=== PATIENT | male | born 1955 | race Caucasian/White ===

== ENCOUNTER 2017-10-28 19:36 | Observation (INO) | payer BC ==
[~2017-10-28] VITALS: Ht 180.3 cm; Wt 112.8 kg
[~2017-10-28 19:36] MED LIST: DOXYCYCLINE 10100 MG PO; NO HOME MEDICATIONS; PHENERGAN 25 TA25 MG PO; PHENERGAN25 MG RC
[2017-10-28 20:07] LABS: BASO # 0.1 (0.0-0.2); BASO % 1.2 % (0.0-2.0); EOS # 0.7 (0.0-0.7); EOS % 9.1 % (0-4.0); GRAN # 4.4 (1.4-6.5); GRAN % 59.7 % (42.2-75.2); HEMATOCRIT 40.9 % (42.0-52.0); HEMOGLOBIN 14.1 g/dl (13.5-18.0); LYMPH # 1.6 (1.2-3.4); LYMPH % 22.3 % (20.0-51.0); MEAN CELL VOLUME 87 fl (80.0-100.0); MEAN CORPUSCULAR HEMOGLOBIN 30 pg (27.0-31.0); MEAN CORPUSCULAR HGB CONC 35 g/dl (33.0-37.0); MEAN PLATELET VOLUME 9.2 fl (7.4-10.4); MONO # 0.5 (0.1-0.6); MONO % 7.4 % (1.7-9.3); PLATELET COUNT 244 K/mm3 (130-400); RED BLOOD COUNT 4.71 M/mm3 (4.20-5.60); REDCELL DISTRIBUTION WIDTH-CV 12.7 % (11.5-14.5)
[2017-10-28 20:12] LABS: PARTIAL THROMBOPLASTIN TIME 33.9 SECONDS (26.0-37.0)
[2017-10-28 20:14] LABS: ALANINE AMINOTRANSFERASE 54 U/L (21-72); ALKALINE PHOSPHATASE 96 U/L (50-136); ANION GAP 8 mmol/L (7-16); AST,SGOT 30 U/L (15-37); BILIRUBIN,TOTAL 0.4 mg/dL (0.0-1.0); BLOOD UREA NITROGEN 13 mg/dL (9-20); CALCIUM 9.4 mg/dL (8.4-10.2); CARBON DIOXIDE 30 mmol/L (22-30); CHLORIDE 102 mmol/L (98-107); CREATININE, serum 0.88 mg/dL (0.66-1.25); GLUCOSE 147 mg/dL (74-106); POTASSIUM 3.9 mmol/L (3.4-5.0); SODIUM 140 mmol/L (137-145)
[2017-10-28] MEDS ORDERED: MUCINEX1200 MG PO (20:21)
[2017-10-28] MEDS ORDERED: PRIMATENE 12.51 TAB (20:21)
[2017-10-28] MEDS ORDERED: ZOCOR 40MG40 MG PO (20:22)
[2017-10-28] MEDS ORDERED: ASPIRIN 81M81 MG/TA2 PO (20:22)
[2017-10-28] MEDS ORDERED: BYSTOLIC5 MG PO (20:22)
[2017-10-28] MEDS ORDERED: PROBIOTIC ACID1 EAC3 PO (20:23)
[2017-10-28] MEDS ORDERED: MASON NATURAL1200 MG PO (20:24)
[2017-10-28] MEDS ORDERED: PHARMASSURE GA500 MG PO (20:24)
[2017-10-28 20:28] LABS: TROPONIN-I < 0.012 ng/mL (0.000-0.034)
[2017-10-28 22:48] VITALS: BP 152/87; PULSE 66; TEMP 98.4
[2017-10-28 22:49] VITALS: BP 152/87; PULSE 67; TEMP 98.4
[2017-10-29] VITALS (8 sets, daily range): BP systolic 108–144; BP diastolic 56–86; PULSE 67–101; TEMP 97.8–98.2
[2017-10-29 06:49] LABS: CHOLESTEROL 152 mg/dL (120-200); CHOLESTEROL RISK RATIO 3.7; HDL CHOLESTEROL 41 mg/dL; LDL CHOLESTEROL 84 mg/dL; TRIGLYCERIDE 137 mg/dL
[2017-10-29 07:02] LABS: TROPONIN-I < 0.012 ng/mL (0.000-0.034)
[2017-10-29] MEDS ORDERED: PROAIR HFA0.09 MG/AC IH (12:06)
== END 2017-10-29 14:30 | disposition home or self-care (01) ==
LOC: COL.ER 19:36 → MEDICAL 20:52
PROVIDERS: Family Medicine; Nurse Practitioner
DX: R07.9 Chest pain, unspecified (principal); I10 Essential (primary) hypertension; I07.1 Rheumatic tricuspid insufficiency; E78.5 Hyperlipidemia, unspecified; Z79.82 Long term (current) use of aspirin; Z79.899 Other long term (current) drug therapy; Z87.891 Personal history of nicotine dependence; Z82.49 Family history of ischemic heart disease and other diseases of the circulatory system; Z80.0 Family history of malignant neoplasm of digestive organs
CPT/HCPCS: A9502; J2785

== ENCOUNTER → 2017-11-10 | Outpatient (CLI) | payer BC ==
[~2017-11-10] MED LIST changes: +ASPIRIN 81M81 MG/TA2 PO; +BYSTOLIC5 MG PO; +MASON NATURAL1200 MG PO; +MUCINEX1200 MG PO; +PHARMASSURE GA500 MG PO; +PRIMATENE 12.51 TAB; +PROAIR HFA0.09 MG/AC IH; +PROBIOTIC ACID1 EAC3 PO; +ZOCOR 40MG40 MG PO
== END ==
LOC: COL.PUL 07:50
DX: R07.89 Other chest pain (principal)